=== PATIENT | female | born 1995 ===

== ENCOUNTER 2021-01-16 10:38 | Outpatient (CLI) | payer BC ==
[~2021-01-16] VITALS: Ht 157.5 cm; Wt 56.4 kg
[2021-01-16 10:51] VITALS: BP 100/62
[2021-01-16] MEDS ORDERED: PREN1TAB60 PO (11:00)
[2021-01-16] MEDS ORDERED: CALC200T3 PO (11:00)
[2021-01-16] MEDS ORDERED: ONDANSETRON ODT 4 MG PO STA (11:21)
[2021-01-16 11:41] LABS: MICROSCOPIC INDICATED
[2021-01-16] MEDS ORDERED: NITR100C56 PO (13:31)
== END 2021-01-16 13:50 | disposition home or self-care (01) ==
LOC: LDOP 10:38 → EDBD 10:38 → LDOP 13:50
PROVIDERS: ATTEND Obstetrics & Gynecology
DX: O21.2 Late vomiting of pregnancy (principal); Z3A.28 28 weeks gestation of pregnancy
CPT/HCPCS: 59025; 81001; 87086; Q0162

== ENCOUNTER 2021-03-15 11:21 | Outpatient (CLI) | payer BC ==
[~2021-03-15 11:21] MED LIST: CALC200T3 PO; NITR100C56 PO; PREN1TAB60 PO
[2021-03-15 12:11] LABS: MICROSCOPIC INDICATED
== END 2021-03-15 13:30 | disposition home or self-care (01) ==
LOC: LDOP 11:21
PROVIDERS: ATTEND Obstetrics & Gynecology
DX: O21.2 Late vomiting of pregnancy (principal); O26.893 Other specified pregnancy related conditions, third trimester; R19.7 Diarrhea, unspecified; Z3A.36 36 weeks gestation of pregnancy
CPT/HCPCS: 59025; 81001; 87086

== ENCOUNTER 2021-03-28 12:53 | Outpatient (CLI) | payer BC ==
[~2021-03-28] VITALS: Ht 157.5 cm; Wt 61.3 kg
== END 2021-03-28 14:15 | disposition home or self-care (01) ==
LOC: LDOP 12:53
PROVIDERS: ATTEND Obstetrics & Gynecology
DX: O42.92 Full-term premature rupture of membranes, unspecified as to length of time between rupture and onset of labor (principal); Z3A.38 38 weeks gestation of pregnancy
CPT/HCPCS: 59025; 84112

== ENCOUNTER 2021-04-06 09:34 | Outpatient (CLI) | payer BC ==
[~2021-04-06] VITALS: Ht 157.5 cm; Wt 61.8 kg
== END 2021-04-06 10:40 | disposition home or self-care (01) ==
LOC: LDOP 09:34
PROVIDERS: ATTEND Obstetrics & Gynecology
DX: O26.893 Other specified pregnancy related conditions, third trimester (principal); R10.9 Unspecified abdominal pain; Z3A.39 39 weeks gestation of pregnancy
CPT/HCPCS: 59025

== ENCOUNTER 2021-04-06 18:58 | Outpatient (CLI) | payer BC ==
[~2021-04-06] VITALS: Ht 157.5 cm; Wt 61.8 kg
[2021-04-06 19:31] VITALS: BP 107/62
[2021-04-06 19:42] LABS: MICROSCOPIC INDICATED
== END 2021-04-06 20:43 | disposition home or self-care (01) ==
LOC: LDOP 18:58
PROVIDERS: ATTEND Obstetrics & Gynecology
DX: O62.9 Abnormality of forces of labor, unspecified (principal); Z3A.39 39 weeks gestation of pregnancy
CPT/HCPCS: 59025; 81001

== ENCOUNTER 2021-04-07 00:04 | Inpatient (IN) | payer BC ==
[~2021-04-07] VITALS: Ht 157.5 cm; Wt 61.8 kg
[2021-04-07 00:49] VITALS: BP 98/66
[2021-04-07] MEDS ORDERED: FENTANYL PF 100 MCG/2ML IVPush PRN (02:30)
[2021-04-07] MEDS ORDERED: ONDANSETRON 2MG/ML, 2ML IVPush PRN ×2 (02:30→10:30)
[2021-04-07] MEDS ORDERED: OXYTOCIN 30U/ 0.9% NaCL 500ML 500 ML IV ONE (02:30)
[2021-04-07] MEDS ORDERED: TERBUTALINE 1 MG/ML, 1ML SQ PRN (02:30)
[2021-04-07] MEDS ORDERED: FENTANYL PF 100 MCG/2ML IV PRN (02:30)
[2021-04-07] MEDS: LACTATED RINGERS 1,000 ML IV SCH ×3 (02:30→08:08)
[2021-04-07] MEDS ORDERED: TERBUTALINE 1 MG/ML, 1ML IVPush PRN (02:30)
[2021-04-07 03:01] LABS: BASOPHILS % (AUTO) 0 % (0-1); EOSINOPHILS % (AUTO) 0 % (1-7); LYMPHOCYTES % (AUTO) 13 % (22-44); MEAN CORPUSCULAR HEMOGLOBIN 25.2 pg (27.0-34.8); MONOCYTES % (AUTO) 5 % (2-9); NEUTROPHILS % (AUTO) 82 % (42-75); PLATELET COUNT 302 x10^3/uL (130-400); RED BLOOD COUNT 3.53 x10^6/uL (3.82-5.3); RED CELL DISTRIBUTION WIDTH 17.4 % (9.6-15.2)
[2021-04-07] MEDS ORDERED: MISOPROSTOL 200 MCG TABLET ONE (03:06)
[2021-04-07] MEDS ORDERED: NEWBORN KIT ONE (03:06)
[2021-04-07] MEDS ORDERED: LIDOCAINE 1%, 20ML ONE (03:06)
[2021-04-07] MEDS ORDERED: BUPIVACAINE 0.25% ONE (07:30)
[2021-04-07] MEDS ORDERED: FENTANYL/BUPIV./NS/PF 250 ML EPIDCONT ONE (07:30)
[2021-04-07] MEDS: LEVOTHYROXINE 50 MCG TABLET PO SCH (09:38)
[2021-04-07] MEDS ORDERED: OXYTOCIN 30U/ 0.9% NaCL 500ML 500 ML IV PRN (10:00)
[2021-04-07] MEDS ORDERED: NALOXONE 0.4 MG/ML, 1ML IVPush PRN (10:30)
[2021-04-07] MEDS ORDERED: LACTATED RINGERS 1,000 ML IV SCH (10:30)
[2021-04-07] MEDS ORDERED: EPHEDRINE 50 MG/ML, 1ML IVPush PRN (10:30)
[2021-04-07] MEDS ORDERED: LACTATED RINGERS 1,000 ML IVBOLUS PRN (10:30)
[2021-04-07] MEDS ORDERED: FENTANYL/BUPIV./NS/PF 250 ML EPIDCONT SCH (10:30)
[2021-04-07] MEDS ORDERED: DIPHENHYDRAMINE 50 MG/ML, 1ML IVPush PRN (10:30)
[2021-04-07] MEDS ORDERED: MISOPROSTOL 200 MCG TABLET PR PRN (13:30)
[2021-04-07] MEDS: OXYTOCIN 30U/ 0.9% NaCL 500ML 500 ML IV SCH ×2 (13:30→23:30)
[2021-04-07] MEDS ORDERED: DOCUSATE 100 MG CAPSULE PO PRN (13:30)
[2021-04-07] MEDS ORDERED: SIMETHICONE 80 MG CHEW TAB PO PRN (13:30)
[2021-04-07] MEDS ORDERED: ONDANSETRON 2MG/ML, 2ML IV PRN (13:30)
[2021-04-07] MEDS ORDERED: OXYcodone/APAP 5/325MG TABLET PO PRN (13:30)
[2021-04-07] MEDS ORDERED: CALCIUM CARBONATE 500 MG TAB.CHEW PO PRN (13:30)
[2021-04-07] MEDS: IBUPROFEN 600 MG TABLET PO PRN ×2 (15:47→22:15)
[2021-04-07 16:31] VITALS: BP 119/80
[2021-04-07 19:15] VITALS: BP 101/56
[2021-04-07 21:07] LABS: BASOPHILS % (AUTO) 0 % (0-1); EOSINOPHILS % (AUTO) 0 % (1-7); LYMPHOCYTES % (AUTO) 10 % (22-44); MEAN CORPUSCULAR HEMOGLOBIN 25.4 pg (27.0-34.8); MEAN PLATELET VOLUME 7.9 fL (7.4-10.4); MONOCYTES % (AUTO) 6 % (2-9); NEUTROPHILS % (AUTO) 84 % (42-75); PLATELET COUNT 255 x10^3/uL (130-400); RED CELL DISTRIBUTION WIDTH 17.4 % (9.6-15.2)
[2021-04-08] MEDS: OXYcodone/APAP 5/325MG TABLET PO PRN ×4 (00:33→13:16)
[2021-04-08 00:40] VITALS: BP 105/65
[2021-04-08 05:00] VITALS: BP 112/76
[2021-04-08] MEDS: IBUPROFEN 600 MG TABLET PO PRN ×2 (05:01→13:16)
[2021-04-08] MEDS: LEVOTHYROXINE 50 MCG TABLET PO SCH (06:55)
[2021-04-08] MEDS ORDERED: PRENATAL VIT/IRON/FA 1 EACH TABLET PO SCH (09:00)
[2021-04-08] MEDS ORDERED: IBUP-1222 PO (11:16)
[2021-04-08] MEDS ORDERED: OXYC1TAB14 PO (11:16)
[2021-04-08] MEDS ORDERED: FERR324T18 PO (11:17)
[2021-04-08] MEDS ORDERED: FERROUS GLUCONATE 324 MG TABLET PO SCH (11:30)
== END 2021-04-08 13:00 | disposition home or self-care (01) | DRG 807 ==
LOC: LDOP 00:04 → LDIP 02:21 → 2NW 15:44
PROVIDERS: ADMIT Obstetrics & Gynecology; ATTEND Obstetrics & Gynecology
PROC: 10E0XZZ Delivery of Products of Conception, External Approach (ICD-10-PCS; principal; 2021-04-07)
PROC: 0KQM0ZZ Repair Perineum Muscle, Open Approach (ICD-10-PCS; 2021-04-07)
PROC: 10907ZC Drainage of Amniotic Fluid, Therapeutic from Products of Conception, Via Natural or Artificial Opening (ICD-10-PCS; 2021-04-07)
PROC: 3E0R3BZ Introduction of Anesthetic Agent into Spinal Canal, Percutaneous Approach (ICD-10-PCS; 2021-04-07)
PROC: 00HU33Z Insertion of Infusion Device into Spinal Canal, Percutaneous Approach (ICD-10-PCS; 2021-04-07)
DX: O69.89X0 Labor and delivery complicated by other cord complications, not applicable or unspecified (principal); Z37.0 Single live birth; O99.284 Endocrine, nutritional and metabolic diseases complicating childbirth; O70.1 Second degree perineal laceration during delivery; Z20.822 Contact with and (suspected) exposure to COVID-19; Z3A.39 39 weeks gestation of pregnancy; O90.2 Hematoma of obstetric wound; E03.9 Hypothyroidism, unspecified
CPT/HCPCS: 36415; 85025; 86592; 86850; 86900; 87635; G0378; J2405; J3010; J2590; J7120